=== PATIENT | female | born 1950 | race Caucasian/White ===

== ENCOUNTER 2019-09-05 22:21 | Emergency (ER) | payer MEDICARE, OTHER ==
[~2019-09-05] VITALS: Ht 157.5 cm; Wt 87.5 kg
[~2019-09-05 22:21] MED LIST: ASPI81EC; ASPI81EC PO; ATEN25 PO; ATOR10; CEPH500 PO; DIPATR PO; FLUO10; FURO20 PO; GLIM2 PO; HYDACE5 PO; HYDCHL12.5; INSDET100; LEVSOD100; LEVSOD112; LEVSOD125 PO; LISI10; LISI5 PO; METF500; METF850 PO; OMEPRAZOLE20 MG PO; ONDA4ODT MM; OXYACE5T PO; PHENA200 PO; PIOG15; PROM25 PO; RXONDA4ODT MM; SPIR25; Simvastatin20 MG PO
[2019-09-05] MEDS ORDERED: ALLEGRA ALLERG180 MG PO (22:44)
[2019-09-05] MEDS ORDERED: ALPR1 PO (22:45)
[2019-09-05] MEDS ORDERED: JANUMET XR 1001 EACH PO (22:46)
[2019-09-05] MEDS ORDERED: ESCI10 PO (22:47)
[2019-09-05] MEDS ORDERED: PROC5 PO (22:48)
[2019-09-05] MEDS ORDERED: TRESIBA FL100 UNIT/1 SC (22:49)
[2019-09-05] MEDS ORDERED: VITAMIN B122500 MCG PO (22:50)
[2019-09-05] MEDS ORDERED: VITAMIN D325 MC1 PO (22:51)
[2019-09-05] MEDS ORDERED: CLOT10 TOP (22:52)
[2019-09-05] MEDS ORDERED: MELO7.5 PO (22:53)
== END 2019-09-06 00:49 | disposition home or self-care (01) ==
LOC: ER 22:21
DX: G43.909 Migraine, unspecified, not intractable, without status migrainosus (principal); E11.9 Type 2 diabetes mellitus without complications; Z91.041 Radiographic dye allergy status; Z88.1 Allergy status to other antibiotic agents; Z88.5 Allergy status to narcotic agent; Z88.8 Allergy status to other drugs, medicaments and biological substances; Z79.899 Other long term (current) drug therapy; Z79.4 Long term (current) use of insulin
CPT/HCPCS: 70450; 96361; 96374; 96375; 99284-25; J1200; J1885; J2405; J2765; J7030

== ENCOUNTER 2019-11-18 21:41 | Observation (INO) | payer MEDICARE, OTHER ==
[~2019-11-18] VITALS: Ht 157.5 cm; Wt 85.3 kg
[~2019-11-18 21:41] MED LIST changes: +ALLEGRA ALLERG180 MG PO; +ALPR1 PO; +CLOT10 TOP; +ESCI10 PO; +JANUMET XR 1001 EACH PO; -LEVSOD100; +LEVSOD100 PO; +MELO7.5 PO; +PROC5 PO; +VITAMIN B122500 MCG PO; +VITAMIN D325 MC1 PO
[2019-11-18 22:28] LABS: BASOPHILS ABSOLUTE AUTO 0.03 K/mm3 (0.00-0.23); BASOPHILS PERCENT AUTO 0 % (0-2); EOSINOPHILS ABSOLUTE AUTO 0.14 K/mm3 (0.00-0.68); EOSINOPHILS PERCENT AUTO 2 % (0-6); Hematocrit 46.9 % (33.0-51.0); Hemoglobin 15.4 g/dL (11.5-16.0); IMMATURE GRAN ABSOLUTE AUTO 0.02 K/mm3 (0.00-0.10); IMMATURE GRAN PERCENT AUTO 0 % (0-1); LYMPHOCYTES ABSOLUTE AUTO 2.72 K/mm3 (0.84-5.20); LYMPHOCYTES PERCENT AUTO 37 % (21-46); MONOCYTES PERCENT AUTO 9 % (4-13); Mean Corpuscular HGB 28.2 pg (26.0-34.0); Mean Corpuscular HGB Conc 32.8 g/dL (31.5-36.5); Mean Corpuscular Volume 86 fL (80-100); NEUTROPHILS ABSOLUTE AUTO 3.81 K/mm3 (1.96-9.15); NEUTROPHILS PERCENT AUTO 51 % (41-73); RDW Coefficient Variation 13.1 % (11.7-14.2); RDW Standard Deviation 40.7 fL (35.1-46.3); Red Blood Cell Count 5.47 M/mm3 (3.80-5.20); White Blood Cell Count 7.42 K/mm3 (4.00-11.30)
[2019-11-18 22:29] LABS: Mean Platelet Volume 10.6 fL (9.1-12.4); Platelet Count 212 K/mm3 (150-400)
[2019-11-18 22:32] LABS: Albumin, Blood 3.8 g/dL (3.4-5.0); Bilirubin, Total 0.4 mg/dL (0.1-1.0); Bun/Creatinine Ratio 20.2 (12.0-20.0); Calcium, Blood 10.3 mg/dL (8.5-10.1); Creatinine, Blood 0.99 mg/dL (0.40-1.00); Globulin, Blood 3.7 g/dL (2.2-4.0); Potassium, Blood 4.1 mmol/L (3.5-5.5); Total Protein, Blood 7.5 g/dL (6.4-8.2)
[2019-11-19 00:36] LABS: CHOL/HDL RATIO 2.6; Cholesterol 188 mg/dL (50-200); HDL Cholesterol 73 mg/dL (>39); Low Density Lipoprotein Chol 69 mg/dL (0-110); Triglycerides 228 mg/dL (30-160); Very Low Density Lipoprot Chol 45 mg/dL (6-32)
[2019-11-19 01:16] LABS: International Normalized Ratio 0.95; Prothrombin Time Results 10.2 Sec (9.7-11.5)
[2019-11-19 02:10] LABS: Source, Urine Clean Catch
[2019-11-19 02:13] LABS: Bilirubin, Urine Neg (Neg); Blood, Urine Neg (Neg); Glucose Qualitative, Urine Neg (Neg); Ketones, Urine 2+ (Neg); Leukocyte Esterase, Urine 3+ (Neg); Nitrite, Urine Neg (Neg); Protein, Urine Neg (Neg); Urobilinogen, Urine 1+ (Normal)
[2019-11-19 02:23] LABS: Appearance, Urine Clear (Clear); Color, Urine Yellow (P-Yellow)
[2019-11-19 02:24] LABS: Bacteria Mod /hpf; Red Blood Cells, Urine Not Seen /hpf (0-2); Squamous Epithelial Cells Few /hpf (Few)
[2019-11-19] MEDS ORDERED: ANAS1 PO (10:41)
[2019-11-19] MEDS ORDERED: DOCU100 PO (10:41)
[2019-11-19] MEDS ORDERED: VENL150ER PO (10:41)
[2019-11-19] MEDS ORDERED: ACET325 PO (10:42)
[2019-11-19] MEDS ORDERED: Vitamin D2000 UNIT PO (10:42)
[2019-11-19] MEDS ORDERED: MIRALAX17 GM PO (10:42)
[2019-11-19] MEDS ORDERED: Support-5001 EACH (10:43)
[2019-11-19] MEDS ORDERED: TRESIBA FL100 UNIT/1 ×2 (12:21)
[2019-11-19] MEDS ORDERED: LEVSOD50 PO (12:24)
--- NOTE | 2019-11-19 12:32 | NUR ---
Echocardiogram using 9.0ml of agitated saline contrast performed.
[2019-11-19] MEDS ORDERED: Aspirin EC81 MG PO ×2 (15:33)
[2019-11-19] MEDS ORDERED: METO50ER PO (15:35)
== END 2019-11-19 15:50 | disposition home or self-care (01) ==
LOC: ER 21:41 → ERHOLD 21:42
PROVIDERS: Emergency Medicine; ADMIT Family Medicine
DX: G45.9 Transient cerebral ischemic attack, unspecified (principal); I16.0 Hypertensive urgency; I10 Essential (primary) hypertension; E11.9 Type 2 diabetes mellitus without complications; F41.9 Anxiety disorder, unspecified; Z88.1 Allergy status to other antibiotic agents; Z88.5 Allergy status to narcotic agent; Z88.8 Allergy status to other drugs, medicaments and biological substances; Z91.041 Radiographic dye allergy status; Z85.3 Personal history of malignant neoplasm of breast; Z79.899 Other long term (current) drug therapy
CPT/HCPCS: 70450; 80053; 80061; 81001; 82947; 84443; 84484; 85025; 85379; 85610; 85730; 87086; 93005; 93010; 93308; 93321; 93880; 93975; 96372-59; 96374-59; 96375-59; 96376; 99285-25; G0378; J0360; J1650; J2060; J2405

== ENCOUNTER 2019-11-20 18:28 | Observation (INO) | payer MEDICARE, OTHER ==
[~2019-11-20] VITALS: Ht 154.9 cm; Wt 84.3 kg
[~2019-11-20 18:28] MED LIST changes: +ACET325 PO; +ANAS1 PO; +Aspirin EC81 MG PO; +DOCU100 PO; +LEVSOD50 PO; +METO50ER PO; +MIRALAX17 GM PO; +Support-5001 EACH; +TRESIBA FL100 UNIT/1; +VENL150ER PO; +Vitamin D2000 UNIT PO
[2019-11-20 19:08] LABS: BASOPHILS ABSOLUTE AUTO 0.02 K/mm3 (0.00-0.23); BASOPHILS PERCENT AUTO 0 % (0-2); EOSINOPHILS ABSOLUTE AUTO 0.16 K/mm3 (0.00-0.68); EOSINOPHILS PERCENT AUTO 2 % (0-6); Hematocrit 44.1 % (33.0-51.0); Hemoglobin 14.3 g/dL (11.5-16.0); IMMATURE GRAN ABSOLUTE AUTO 0.03 K/mm3 (0.00-0.10); IMMATURE GRAN PERCENT AUTO 0 % (0-1); LYMPHOCYTES ABSOLUTE AUTO 2.22 K/mm3 (0.84-5.20); LYMPHOCYTES PERCENT AUTO 28 % (21-46); MONOCYTES ABSOLUTE AUTO 0.65 K/mm3 (0.16-1.47); MONOCYTES PERCENT AUTO 8 % (4-13); Mean Corpuscular HGB Conc 32.4 g/dL (31.5-36.5); Mean Corpuscular Volume 86 fL (80-100); Mean Platelet Volume 10.4 fL (9.1-12.4); NEUTROPHILS ABSOLUTE AUTO 4.98 K/mm3 (1.96-9.15); NEUTROPHILS PERCENT AUTO 62 % (41-73); Platelet Count 222 K/mm3 (150-400); RDW Coefficient Variation 13.2 % (11.7-14.2); RDW Standard Deviation 41.7 fL (35.1-46.3); Red Blood Cell Count 5.11 M/mm3 (3.80-5.20); White Blood Cell Count 8.06 K/mm3 (4.00-11.30)
[2019-11-20 19:23] LABS: International Normalized Ratio 0.97; Prothrombin Time Results 10.4 Sec (9.7-11.5)
[2019-11-20 19:29] LABS: Alanine Aminotransfer (ALT/SGP 16 U/L (12-78); Albumin, Blood 3.6 g/dL (3.4-5.0); Albumin/Globulin Ratio 1.1 (0.8-1.8); Alk Phos 73 U/L (50-136); Anion Gap 5 mmol/L (6-16); Aspartate Aminotrans (AST/SGOT 10 U/L (12-37); Bilirubin, Total 0.3 mg/dL (0.1-1.0); Blood Urea Nitrogen 21 mg/dL (8-24); Bun/Creatinine Ratio 29.1 (12.0-20.0); CO2, Blood 25 mmol/L (21-32); Calcium, Blood 9.7 mg/dL (8.5-10.1); Chloride, Blood 105 mmol/L (98-108); Creatinine, Blood 0.72 mg/dL (0.40-1.00); Ethanol (Alcohol), Blood, Med <3 mg/dL; Globulin, Blood 3.2 g/dL (2.2-4.0); Glomerular Filtration Rate >60 (60-); Glucose, Blood 136 mg/dL (70-99); Potassium, Blood 3.9 mmol/L (3.5-5.5); Sodium, Blood 135 mmol/L (136-145); Total Protein, Blood 6.8 g/dL (6.4-8.2)
[2019-11-20 21:58] LABS: Source, Urine Clean Catch
[2019-11-20 22:00] LABS: Appearance, Urine Clear (Clear); Bilirubin, Urine Neg (Neg); Blood, Urine Neg (Neg); Color, Urine Yellow (P-Yellow); Glucose Qualitative, Urine Neg (Neg); Ketones, Urine Neg (Neg); Leukocyte Esterase, Urine 1+ (Neg); Nitrite, Urine Neg (Neg); Protein, Urine Neg (Neg); Urobilinogen, Urine NORM (Normal); pH, Urine 6.5 (5.0-8.0)
[2019-11-20 22:06] LABS: Bacteria Mod /hpf; Red Blood Cells, Urine 0-2 /hpf (0-2); Squamous Epithelial Cells Few /hpf (Few)
--- NOTE | 2019-11-21 03:22 | NUR ---
SHIFT SUMMARY ASSUMED CARE OF PT AT 221. PT IS A/O X4, DENIES N/T IN EXTREMITIES. STAYED WITH PT IN ROOM, PT IS FORGETFUL AT TIMES AND REMINDS PT ABOUT TREATMENTS IN THE ER. HEART SOUNDS REGULAR, ON TELE SHOWING SINUS W/ PAC'S @ 79, DENIES CP AT THIS PAIN. LUNG SOUNDS CLEAR, DENIES SOB AT THIS TIME. PT IS CONCERNED ABOUT HER MRI TOMORROW AND WHAT THE RESULTS WILL SAY. PT C/O HEADACHE UPON ADMISSION, MEDICATED PER EMAR. NO ACUTE EVENTS DURING THE NIGHT. PT SLEPT T/O THE NIGHT. CALL LIGHT IN REACH, BED IN LOWEST POSTITION, WILL CONTINUE TO MONITOR UNTIL DAYSHIFT NURSE ARRIVES.
--- NOTE | 2019-11-21 12:43 | NUR ---
SHE HAS SLEPT MOST OF THE DAY. HER APPETITE IS SMALL. SHE RECEIVED ATIVAN X1 A PREMED FOR HER MRI. A DRAFT REPORT IS AVAILABLE. IT IS NOT COMPLETELY NEGATIVE. ROUNDED. I LEFT HIM A PHONE MSG THAT A DRAFT IS AVAILABLE. FAMILY AT BEDSIDE. DARIN HAS NOT BEEN INTERACTING MUCH WITH THEM. SHE PREFERS TO SLEEP, BEFORE AND AFTER THE ATIVAN. SHE IS AMBULATORY. HER NEURO ASSESSMENT HAS BEEN NEGATIVE.
--- NOTE | 2019-11-21 16:36 | NUR ---
SHE HAS HER FAMILY AROUND HER. SHE IS VERY SAD THAT SHE DECIDED TO STAY ANOTHER NIGHT BUT AGREES WITH THE DOCTOR AND HER FAMILY THAT IT IS BEST. HER MRI CONFIRMED A SMALL STROKE AND BEING IN THE OCCIPITAL REGION VALIDATES THE SYMPTOMS SHE HAD AT HOME. TELE ON. SHE IS CONSISTENT FOE NSR WITH SOME PAC'S IN THE 80'S. XANAX HAS BEEN ORDERED SHE TAKES AT HOME. SHE SCHEDULES IT AT HOME TID. LUNCHTIME CBG OVER 200 REQUIRING INSULIN. SHE SAYS SHE IS CONSISTENTLY 120'S AT HOME. SHE HAS NAPPED A LOT TODAY, PARTIALLY BECAUSE OF THE ATIVAN SHE RECEIVED A PREMED TO THE MRI. SHE AMBULATES WITH SBA, USUALLY FROM HER FAMILY. SCD'S ON THIS AFTERNOON.
[2019-11-21] MEDS ORDERED: VENL150ER PO ×2 (19:25)
--- NOTE | 2019-11-22 00:10 | NUR ---
NEURO CHECKS CONTINUE. NO NOTED DEFECEIT AT THIS TIME.
--- NOTE | 2019-11-22 04:37 | NUR ---
PT HAS BEEN RESTING QUIETLY WITHOUT NOTED DISTRESS OTHER THAN A "HEADACHE" FOR WHICH SHE RECEIVED TYLENOL. VOICED MED EFFECTIVE. NEURO CHECKS REMAIN WITHOUT NOTED DEFECEITS. CALL LIGHT IN REACH, WILL CONTINUE TO MONITOR.
[2019-11-22] MEDS ORDERED: ATOR80 PO ×2 (14:15)
--- NOTE | 2019-11-22 14:50 | NUR ---
PT. DISCHARGED HOME WITH FAMILY, DENIED PAIN, H.A., NUMBNESS OR TINGLING. ALL NEUROS INTACT.
== END 2019-11-22 14:50 | disposition home or self-care (01) ==
LOC: ER 18:28 → MEDS 18:29 → ENPENDDIS 11-22 11:49 → MEDS 11-22 14:50
PROVIDERS: Emergency Medicine; ADMIT Family Medicine
DX: I67.2 Cerebral atherosclerosis (principal); F41.9 Anxiety disorder, unspecified; E11.9 Type 2 diabetes mellitus without complications; I10 Essential (primary) hypertension; Z88.5 Allergy status to narcotic agent; Z88.1 Allergy status to other antibiotic agents; Z91.041 Radiographic dye allergy status; Z88.8 Allergy status to other drugs, medicaments and biological substances; Z79.82 Long term (current) use of aspirin; Z79.84 Long term (current) use of oral hypoglycemic drugs
CPT/HCPCS: 70450; 70551; 80053; 81001; 82947; 85025; 85610; 85730; 87086; 93005; 93010; 96372; 96374; 97116; 97162; 99285-25; A9270; A9270-GY; G0378; G0480; J1650; J1815; J2060

== ENCOUNTER → 2021-03-21 | Outpatient (CLI) | payer MEDICARE ==
[~2021-03-21] MED LIST changes: +ATOR80 PO
[2021-03-22 11:46] LABS: Stool Occult Bld Immuno 1 Negative (NEGATIVE)
== END | disposition home or self-care (01) ==
LOC: LAB SHORT 14:40 → LAB 14:40
PROVIDERS: Internal Medicine Gastroenterology
DX: Z12.11 Encounter for screening for malignant neoplasm of colon (principal)
CPT/HCPCS: 82274

== ENCOUNTER 2021-09-26 07:53 | Day surgery (SDC) | payer MEDICARE ==
[2021-09-26] MEDS ORDERED: CLOP75 PO (08:46)
[2021-09-26] MEDS ORDERED: SITA100T2 PO (08:54)
[2021-09-26] MEDS ORDERED: METF500C PO (08:54)
--- NOTE | 2021-09-26 08:59 | NUR ---
09/26/21 0859 Kaleigh Aponte ELEVATED BLOOD PRESSURE AND BLOOD SUGAR LEVELS REPORTED TO DR. ANDREW AND DR. MCCLURE. PROCEDURE CANCELLED BY SURGEON AND ANESTHESIOLOGIST. PT STATES SHE IS SEEING HER HOTEL SERVICE SUPERVISOR ON FRIDAY, RECORDS FAXED TO DR. JACOBS, COPY PROVIDED AT PT'S REQUEST TO CARRY WITH HER TO APPOINTMENT WITH DR. ALATORRE. EDUCATION PROVIDED. IV DISCONTINUED. PT'S RIDE WAITING IN WAITING ROOM.
== END 2021-09-26 09:12 | disposition home or self-care (01) ==
LOC: ORSCSDS 07:53
DX: H25.11 Age-related nuclear cataract, right eye (principal); Z53.9 Procedure and treatment not carried out, unspecified reason
CPT/HCPCS: 82947; J2001; J2250; J3010; J3301; J7040

== ENCOUNTER 2021-10-24 07:51 | Day surgery (SDC) | payer MEDICARE ==
[~2021-10-24] VITALS: Ht 160 cm; Wt 92.5 kg
[~2021-10-24 07:51] MED LIST changes: +CLOP75 PO; +METF500C PO; +SITA100T2 PO
[2021-10-24] MEDS ORDERED: FELODIPINE ER5 M1 (08:14)
[2021-10-24] MEDS ORDERED: METO25ER (08:15)
[2021-10-24] MEDS ORDERED: SITA100T2 (08:15)
[2021-10-24] MEDS ORDERED: NATE60 (08:16)
[2021-10-24] MEDS ORDERED: ZOCOR20 MG (08:16)
[2021-10-24] MEDS ORDERED: DYAZIDE 37.5-21 EACH (08:17)
== END 2021-10-24 10:00 | disposition home or self-care (01) ==
LOC: ORSCSDS 07:51
PROVIDERS: Ophthalmology
PROC: 08RJ3JZ Replacement of Right Lens with Synthetic Substitute, Percutaneous Approach (ICD-10-PCS; principal; 2021-10-24 09:00)
DX: H25.11 Age-related nuclear cataract, right eye (principal); I63.9 Cerebral infarction, unspecified; I10 Essential (primary) hypertension; E66.9 Obesity, unspecified; Z68.36 Body mass index [BMI] 36.0-36.9, adult; Z79.01 Long term (current) use of anticoagulants; Z79.84 Long term (current) use of oral hypoglycemic drugs; Z79.899 Other long term (current) drug therapy
CPT/HCPCS: 82947; J2001; J2250; J3010; J3301; J7040; V2632

== ENCOUNTER 2021-11-14 06:51 | Day surgery (SDC) | payer MEDICARE ==
[~2021-11-14] VITALS: Ht 160 cm; Wt 94.5 kg
[~2021-11-14 06:51] MED LIST changes: +DYAZIDE 37.5-21 EACH; +FELODIPINE ER5 M1; +METO25ER; +NATE60; +SITA100T2; +ZOCOR20 MG
[2021-11-14] MEDS ORDERED: VENLAFAXINE HC225 MG PO (07:13)
--- NOTE | 2021-11-14 07:16 | NUR ---
11/14/21 0716 Pauly Bautista AT 0708 PLEDGET AT 710
== END 2021-11-14 08:55 | disposition home or self-care (01) ==
LOC: ORSCSDS 06:51
PROVIDERS: Ophthalmology
PROC: 08RK3JZ Replacement of Left Lens with Synthetic Substitute, Percutaneous Approach (ICD-10-PCS; principal; 2021-11-14 08:00)
DX: H25.12 Age-related nuclear cataract, left eye (principal); I10 Essential (primary) hypertension; I63.9 Cerebral infarction, unspecified; E11.9 Type 2 diabetes mellitus without complications; E66.9 Obesity, unspecified; Z68.36 Body mass index [BMI] 36.0-36.9, adult; Z79.01 Long term (current) use of anticoagulants; Z79.84 Long term (current) use of oral hypoglycemic drugs; Z79.899 Other long term (current) drug therapy
CPT/HCPCS: 82947; J2001; J2250; J3301; V2632

== ENCOUNTER → 2024-10-22 | Outpatient (CLI) | payer MEDICARE ==
[~2024-10-22] MED LIST changes: +ANASTROZOLE1 M7 PO; +BASAGLAR K100 UNIT/3 SC; +FELODIPINE ER5 M2 PO; +METFORMIN HCL500 M3 PO; +METOPROLOL ER SUCCIN; +OZEMPIC2 MG/0.75 SQ; +PANTOPRAZOLE SO40 M2 PO; +PLAVIX75 MG; +VENLAFAXINE ER 75MG; +VENLAFAXINE HC225 MG PO
[2024-10-22 12:25] LABS: BASOPHILS ABSOLUTE AUTO 0.03 K/mm3 (0.00-0.23); BASOPHILS PERCENT AUTO 0 % (0-2); EOSINOPHILS ABSOLUTE AUTO 0.11 K/mm3 (0.00-0.68); EOSINOPHILS PERCENT AUTO 1 % (0-6); Hematocrit 38.8 % (33.0-51.0); Hemoglobin 12.7 g/dL (11.5-16.0); IMMATURE GRAN PERCENT AUTO 1 % (0-1); LYMPHOCYTES PERCENT AUTO 19 % (21-46); MONOCYTES ABSOLUTE AUTO 1.44 K/mm3 (0.16-1.47); MONOCYTES PERCENT AUTO 10 % (4-13); Mean Corpuscular HGB Conc 32.7 g/dL (31.5-36.5); Mean Corpuscular Volume 82 fL (80-100); Mean Platelet Volume 9.7 fL (9.1-12.4); NEUTROPHILS ABSOLUTE AUTO 9.49 K/mm3 (1.96-9.15); NEUTROPHILS PERCENT AUTO 68 % (41-73); Platelet Count 343 K/mm3 (150-400); RDW Standard Deviation 39.1 fL (35.1-46.3); Red Blood Cell Count 4.71 M/mm3 (3.80-5.20); White Blood Cell Count 13.97 K/mm3 (4.00-11.30)
[2024-10-22 12:32] LABS: Albumin, Blood 3.5 g/dL (3.4-5.0); Albumin/Globulin Ratio 0.9 (0.8-1.8); Bilirubin, Total 0.5 mg/dL (0.1-1.0); Bun/Creatinine Ratio 9.2 (12.0-20.0); Calcium, Blood 10.1 mg/dL (8.5-10.1); Creatinine, Blood 1.09 mg/dL (0.40-1.00); Globulin, Blood 3.8 g/dL (2.2-4.0); Potassium, Blood 3.8 mmol/L (3.5-5.5); Total Protein, Blood 7.3 g/dL (6.4-8.2); Uric Acid, Blood 4.5 mg/dL (2.6-6.0)
== END | disposition home or self-care (01) ==
LOC: LAB SHORT 12:18
PROVIDERS: Chiropractor
DX: L03.116 Cellulitis of left lower limb (principal)
CPT/HCPCS: 80053; 84550; 85025

== ENCOUNTER → 2025-04-27 | Outpatient (CLI) | payer MEDICARE ==
[2025-04-27 15:15] LABS: Creatinine, Urine Random 27.3 mg/dL (27.00-270.00); Microalb/Creat Ratio UR, Rand 25.055 mg/g (0.000-30.000); Microalbumin, Random Urine 6.84 mg/L (0.000-20.000)
== END ==
LOC: LAB SHORT 12:00 → LAB 12:00 → LAB FUT 04-22 12:35
PROVIDERS: Internal Medicine
DX: I10 Essential (primary) hypertension (principal); E03.9 Hypothyroidism, unspecified; E78.5 Hyperlipidemia, unspecified
CPT/HCPCS: 82043; 82570

== ENCOUNTER 2025-08-16 01:30 | Day surgery (SDC) | payer MEDICARE ==
--- NOTE | 2025-08-16 17:39 | NUR ---
DISCUSSED PROCEDURE WITH THE PATIENT. SHE STATED THAT SHE DOESN'T VOID MUCH IN THE MIDDLE OF THE DAY DESPITE DRINKING "A LOT OF WATER AND TEA". PROVIDED HER WITH A BOTTLE OF WATER TO DRINK. PRE VOID SCAN PERFORMED TWICE DUE TO LOW RESULTS.
== END 2025-08-16 16:20 | disposition home or self-care (01) ==
LOC: ATC 01:30
DX: N39.0 Urinary tract infection, site not specified (principal); N39.46 Mixed incontinence; E11.9 Type 2 diabetes mellitus without complications; I10 Essential (primary) hypertension; E78.5 Hyperlipidemia, unspecified; E03.9 Hypothyroidism, unspecified
CPT/HCPCS: 51798; 99211